=== PATIENT | male | born 1955 | race Caucasian/White ===

== ENCOUNTER 2021-09-15 11:44 | Inpatient (IN) | payer MEDICARE, OTHER ==
[~2021-09-15] VITALS: Ht 167.6 cm; Wt 75.0 kg
[2021-09-15 12:33] LABS: BASOPHILS # (AUTO) 0.1 X10'3 (0-0.2); BASOPHILS % (AUTO) 0.9 % (0-1); EOSINOPHILS # (AUTO) 0.1 X10'3 (0-0.9); EOSINOPHILS % (AUTO) 1.4 % (0-6); HEMATOCRIT 45.8 % (42.0-52.0); HEMOGLOBIN 15.9 g/dl (14.0-17.9); LYMPHOCYTES # (AUTO) 1.5 X10'3 (1.1-4.8); LYMPHOCYTES % (AUTO) 20.3 % (21-51); MEAN CORPUSCULAR HEMOGLOBIN 32.5 PG (27.0-31.0); MEAN CORPUSCULAR HGB CONC 34.7 g/dL (33.0-36.5); MEAN CORPUSCULAR VOLUME 93.6 FL (78-98); MEAN PLATELET VOLUME 8.1 FL (7.4-10.4); MONOCYTES # (AUTO) 0.6 X10'3 (0-0.9); MONOCYTES % (AUTO) 7.9 % (2-12); NEUTROPHILS # (AUTO) 5.3 X10'3 (1.8-7.7); NEUTROPHILS % (AUTO) 69.5 % (42-75); PLATELET COUNT 193 X10'3 (140-440); RED BLOOD COUNT 4.89 X10'6 (4.70-6.10); RED CELL DISTRIBUTION WIDTH 13.6 % (11.5-14.5); WHITE BLOOD COUNT 7.6 X10'3 (4.5-11.0)
[2021-09-15] MEDS ORDERED: normal saline 1000ML IV soln IVB ONE (12:40)
[2021-09-15 12:42] LABS: ALANINE AMINOTRANSFERASE 28 U/L (12-78); ALBUMIN/GLOBULIN RATIO 0.9 (1.1-1.5); ALKALINE PHOSPHATASE 92 IU/L (46-116); ANION GAP 13 (8-16); ASPARTATE AMINO TRANSFERASE 26 U/L (10-37); BILIRUBIN,TOTAL 0.4 MG/DL (0.1-1.0); BLOOD UREA NITROGEN 17 MG/DL (7-18); BUN/CREATININE RATIO 15.6 (5.4-32.0); CALCIUM 8.9 MG/DL (8.5-10.1); CHLORIDE 108 MMOL/L (99-107); CREATININE 1.09 MG/DL (0.60-1.10); GLUCOSE 112 MG/DL (70-104); POTASSIUM 4.2 MMOL/L (3.5-5.1); SODIUM 146 MMOL/L (135-145); TOTAL PROTEIN 8.3 G/DL (6.4-8.2); eGFR 67 ML/MIN
[2021-09-15] MEDS ORDERED: diltiazem 5mg/ml 5ml inj. IV ONE ×2 (12:55→13:20)
[2021-09-15 13:14] LABS: D-DIMER 0.58 MG/L FEU (0-0.50)
[2021-09-15 13:28] LABS: CLARITY,URINE CLEAR (Clear); COLOR,URINE YELLOW (Yellow); GLUCOSE, URINE NEGATIVE (Neg); KETONES,URINE NEGATIVE (Neg); LEUKOCYTE ESTERASE ,URINE NEGATIVE (Neg); NITRITES, URINE NEGATIVE (Neg); OCCULT BLOOD,URINE TRACE-INTACT (Neg); PROTEIN,URINE 30 mg/dl (Neg); UROBILINOGEN,URINE 0.2 E.U/dL (0.2-1.0)
[2021-09-15 13:29] LABS: UA COLLECTION TYPE URINAL
[2021-09-15] MEDS ORDERED: methylPREDNISolone sod succ 125mg/2ml vial IV ONE (13:30)
[2021-09-15 13:34] LABS: BACTERIA,URINE NONE SEEN /HPF (Neg); MUCUS STRANDS NONE SEEN /LPF (Neg); RBC,URINE NONE SEEN /HPF (0-2); SQUAMOUS EPITHELIAL CELL,UR FEW /LPF (FEW); WBC,URINE NONE SEEN /HPF (0-4)
[2021-09-15] MEDS ORDERED: METF-436 PO (13:38)
[2021-09-15] MEDS ORDERED: AMLO10TA48 PO (13:38)
[2021-09-15] MEDS ORDERED: LISI20TA28 PO (13:38)
[2021-09-15] MEDS ORDERED: metoclopramide 5 mg/ml inj IV PRN (16:00)
[2021-09-15] MEDS ORDERED: acetaminophen 650mg rectal suppository RC PRN (16:00)
[2021-09-15] MEDS ORDERED: magnesium Cl slow-release 64mg tablet PO PRN (16:00)
[2021-09-15] MEDS ORDERED: acetaminophen 325mg tablet PO PRN ×2 (16:00)
[2021-09-15] MEDS ORDERED: magnesium 4gm in 100ml NS 100 ML IV PRN (16:00)
[2021-09-15] MEDS ORDERED: mag hydrox/Alum hydrox/simeth 30ml oral suspension PO PRN (16:00)
[2021-09-15] MEDS ORDERED: ondansetron/PF 4mg/2ml inj IV PRN (16:00)
[2021-09-15] MEDS ORDERED: ondansetron 4mg rapidly disintigrating tab PO PRN (16:00)
[2021-09-15] MEDS ORDERED: ipratropium/albuterol 3ml nebule NEB PRN (16:00)
[2021-09-15] MEDS ORDERED: HYDROmorphone/PF 0.2 MG/ML SYRINGE IV PRN (16:00)
[2021-09-15] MEDS ORDERED: magnesium hydroxide 30ml (MOM) UD suspension PO PRN (16:00)
[2021-09-15] MEDS ORDERED: HYDROcodone/acetaminophen 5mg/325mg tablet PO PRN (16:00)
[2021-09-15] MEDS ORDERED: HYDROcodone/acetaminophen 10/325mg tab PO PRN (16:00)
[2021-09-15] MEDS ORDERED: bisacodyl 10mg suppository rectal RC PRN (16:00)
[2021-09-15] MEDS ORDERED: magnesium 2GM in 50ml NS 50 ML IV PRN (16:00)
[2021-09-15] MEDS ORDERED: potassium CL 10mEq/100ml bag 100 ML IV PRN (16:00)
[2021-09-15] MEDS ORDERED: potassium Cl 20 mEq SR tablet PO PRN (16:00)
[2021-09-15] MEDS ORDERED: PERFLUTREN PROTEIN-A MICROSPHR (Optison) 0.22 MG/ML 3ML VIAL IV ONE (16:00)
[2021-09-15] MEDS ORDERED: iohexol 350MG/ML 100ml bottle IV ONE (16:21)
[2021-09-15] MEDS ORDERED: LORazepam 1 MG tablet PO PRN (16:40)
[2021-09-15] MEDS ORDERED: cefTRIAXone 1g/NS 100ml IVPB 100 ML IV SCH ×2 (16:40→22:34)
[2021-09-15] MEDS ORDERED: VANCOMYCIN LEVEL IV ONE (17:21)
[2021-09-15] MEDS: dextrose 5%-1/2 normal saline 1,000 ML IV SCH (18:08)
[2021-09-15] MEDS: diltiazem-NS 100mg/100ml 100 ML IV SCH (18:09)
[2021-09-15] MEDS: ipratropium/albuterol 3ml nebule NEB SCH ×2 (19:03→23:09)
[2021-09-15 19:09] LABS: HEMOGLOBIN A1C 5.4 % (4.5-6.2)
[2021-09-15] MEDS: K and/or MAG REPLACEMENT MC SCH (20:00)
--- NOTE | 2021-09-15 20:51 | NUR ---
SPOKE TO DR ALCARAZ OVER THE PHONE. HE WILL CHANGE ORDER OF CARDIZEM TO BE RUNNING AT 15 PCU REQUESTS AN ORDER EVERY TIME THEY TITRATE UP FROM 5
[2021-09-15] MEDS ORDERED: temazepam 15mg capsule PO PRN (21:00)
[2021-09-15 22:02] VITALS: BP 136/95
--- NOTE | 2021-09-15 23:15 | NUR ---
pt admitted to floor from ED. A&Ox4. ambulatory to bed. pt denies any pain/palpitations at this time. Cardizem gtt infusing 15mLs/hr. HR 120s. sinus tach. BP stable, cycling. pt states dyspnea with ambulation. receiving bhumika breathing treatments. ? new diagnosis COPD has pulmonology appointment Wednesday per pt. pt does endorse moderate alcohol use, 3-4 whiskeys a night. last drink was yesterday evening per pt. pt denies any hx of withdraws from alcohol. 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 skin assessment completed. see chart. pt resting comfortably in bed. respirations even and unlabored. denies any pain at this time. call light within reach. frequent rounding. [facility] Addendum: 09/16/21 at 0147 by Valentine Vega - Traveler RN pt remains asymptomatic on 15ml/hr Cardizem. HR remains Sinus Tach/ ?aflutter, 120s-130s. MD davis paged, on floor and made aware. no new orders at this time. maintain gtt at 15mL/hr per . pt remains on monitor now 110s-120s. call light within reach. [facility]
[2021-09-16] VITALS (9 sets, daily range): BP systolic 97–125; BP diastolic 62–83
[2021-09-16] MEDS: diltiazem-NS 100mg/100ml 100 ML IV SCH ×2 (00:37→09:19)
[2021-09-16] MEDS: ipratropium/albuterol 3ml nebule NEB SCH ×6 (03:13→22:55)
[2021-09-16] MEDS: dextrose 5%-1/2 normal saline 1,000 ML IV SCH ×2 (06:18→11:14)
--- NOTE | 2021-09-16 07:00 | NUR ---
Diabetes consult: Noted pt w/ hx of DM, A1c 5.4 well controlled and appropriate per ADA guidelines. DM ed not indicated at this time. Addendum: 09/16/21 at [address] Amended: Links added.
[2021-09-16 07:13] LABS: BASOPHILS % (AUTO) 0.1 % (0-1); EOSINOPHILS % (AUTO) 0 % (0-6); HEMATOCRIT 40.9 % (42.0-52.0); HEMOGLOBIN 14.4 g/dl (14.0-17.9); LYMPHOCYTES # (AUTO) 0.2 X10'3 (1.1-4.8); LYMPHOCYTES % (AUTO) 2.2 % (21-51); MEAN CORPUSCULAR HEMOGLOBIN 33.3 PG (27.0-31.0); MEAN CORPUSCULAR HGB CONC 35.2 g/dL (33.0-36.5); MEAN CORPUSCULAR VOLUME 94.7 FL (78-98); MEAN PLATELET VOLUME 8.6 FL (7.4-10.4); MONOCYTES # (AUTO) 0.3 X10'3 (0-0.9); MONOCYTES % (AUTO) 2.3 % (2-12); NEUTROPHILS # (AUTO) 10.5 X10'3 (1.8-7.7); NEUTROPHILS % (AUTO) 95.4 % (42-75); PLATELET COUNT 164 X10'3 (140-440); RED BLOOD COUNT 4.32 X10'6 (4.70-6.10); RED CELL DISTRIBUTION WIDTH 13.7 % (11.5-14.5)
[2021-09-16 07:38] LABS: GLUCOSE 221 MG/DL (70-104)
[2021-09-16 07:39] LABS: ALANINE AMINOTRANSFERASE 24 U/L (12-78); ALBUMIN 3.2 G/DL (3.4-5.0); ALBUMIN/GLOBULIN RATIO 0.9 (1.1-1.5); ALKALINE PHOSPHATASE 79 IU/L (46-116); ANION GAP 22 (8-16); ASPARTATE AMINO TRANSFERASE 21 U/L (10-37); BILIRUBIN,TOTAL 0.3 MG/DL (0.1-1.0); BLOOD UREA NITROGEN 21 MG/DL (7-18); BUN/CREATININE RATIO 12.8 (5.4-32.0); CHLORIDE 106 MMOL/L (99-107); CREATININE 1.64 MG/DL (0.60-1.10); MAGNESIUM 1.6 MG/DL (1.5-2.4); POTASSIUM 3.2 MMOL/L (3.5-5.1); SODIUM 144 MMOL/L (135-145); TOTAL CARBON DIOXIDE 15.6 MMOL/L (24-32); TOTAL PROTEIN 6.8 G/DL (6.4-8.2); eGFR 42 ML/MIN
[2021-09-16] MEDS: K and/or MAG REPLACEMENT MC SCH ×2 (08:00→19:55)
[2021-09-16] MEDS ORDERED: lisinopril 20mg tablet PO SCH (08:00)
[2021-09-16] MEDS ORDERED: bisacodyl 10mg suppository rectal RC PRN (09:05)
[2021-09-16] MEDS: potassium Cl 20 mEq SR tablet PO PRN ×3 (10:44→19:55)
[2021-09-16] MEDS: metoprolol tartrate 12.5mg (1/2 tablet) PO SCH ×2 (11:13→19:54)
[2021-09-16] MEDS: docusate sod 100mg capsule PO SCH ×2 (11:13→19:54)
[2021-09-16] MEDS: piperacillin/tazo 3.375gm/50ml 50 ML IV SCH (16:14)
[2021-09-16] MEDS ORDERED: polyethylene glycol 3350 17gm powd pack PO SCH (21:00)
[2021-09-17] MEDS: piperacillin/tazo 3.375gm/50ml 50 ML IV SCH ×2 (00:09→08:30)
[2021-09-17 02:00] VITALS: BP 98/63
[2021-09-17] MEDS: ipratropium/albuterol 3ml nebule NEB SCH ×3 (03:05→11:32)
[2021-09-17] MEDS: dextrose 5%-1/2 normal saline 1,000 ML IV SCH (05:49)
[2021-09-17 06:00] VITALS: BP 123/63
[2021-09-17 08:30] VITALS: BP_SYST 123
[2021-09-17] MEDS: K and/or MAG REPLACEMENT MC SCH (08:30)
[2021-09-17] MEDS: metoprolol tartrate 12.5mg (1/2 tablet) PO SCH (08:30)
[2021-09-17] MEDS: docusate sod 100mg capsule PO SCH (08:30)
[2021-09-17 08:47] LABS: BASOPHILS % (AUTO) 0.1 % (0-1); EOSINOPHILS % (AUTO) 0 % (0-6); HEMATOCRIT 40.1 % (42.0-52.0); HEMOGLOBIN 13.9 g/dl (14.0-17.9); LYMPHOCYTES % (AUTO) 7.8 % (21-51); MEAN CORPUSCULAR HEMOGLOBIN 32.8 PG (27.0-31.0); MEAN CORPUSCULAR HGB CONC 34.7 g/dL (33.0-36.5); MEAN CORPUSCULAR VOLUME 94.7 FL (78-98); MEAN PLATELET VOLUME 8.3 FL (7.4-10.4); MONOCYTES # (AUTO) 0.8 X10'3 (0-0.9); MONOCYTES % (AUTO) 6.6 % (2-12); NEUTROPHILS # (AUTO) 10.6 X10'3 (1.8-7.7); NEUTROPHILS % (AUTO) 85.5 % (42-75); PLATELET COUNT 168 X10'3 (140-440); RED BLOOD COUNT 4.23 X10'6 (4.70-6.10); RED CELL DISTRIBUTION WIDTH 14.2 % (11.5-14.5); WHITE BLOOD COUNT 12.4 X10'3 (4.5-11.0)
[2021-09-17 09:11] LABS: ALANINE AMINOTRANSFERASE 25 U/L (12-78); ALBUMIN 3.4 G/DL (3.4-5.0); ALKALINE PHOSPHATASE 71 IU/L (46-116); ANION GAP 11 (8-16); ASPARTATE AMINO TRANSFERASE 21 U/L (10-37); BILIRUBIN,TOTAL 0.4 MG/DL (0.1-1.0); BLOOD UREA NITROGEN 23 MG/DL (7-18); BUN/CREATININE RATIO 18.5 (5.4-32.0); CALCIUM 8.5 MG/DL (8.5-10.1); CHLORIDE 108 MMOL/L (99-107); CREATININE 1.24 MG/DL (0.60-1.10); GLUCOSE 100 MG/DL (70-104); MAGNESIUM 1.8 MG/DL (1.5-2.4); POTASSIUM 4.2 MMOL/L (3.5-5.1); SODIUM 142 MMOL/L (135-145); TOTAL CARBON DIOXIDE 22.8 MMOL/L (24-32); TOTAL PROTEIN 6.8 G/DL (6.4-8.2); eGFR 58 ML/MIN
[2021-09-17] MEDS ORDERED: POLY17PO10 PO (10:53)
[2021-09-17] MEDS ORDERED: AMOX-117 PO (10:53)
[2021-09-17] MEDS ORDERED: DOCU-171 PO (10:53)
[2021-09-17] MEDS ORDERED: LOP12.5T PO (10:53)
--- NOTE | 2021-09-17 12:30 | NUR ---
Per orders, DC patient. Pt was educated on discharge orders and new medications. Pt iv and tele removed and pt left via wheelchair with .
== END 2021-09-17 16:27 | disposition home or self-care (01) | DRG 602 ==
LOC: ER 11:45 → ED HOLD 16:04 → PCU 3S 21:45
PROVIDERS: ADMIT Family Medicine; ATTEND Family Medicine
PROC: B32T1ZZ Computerized Tomography (CT Scan) of Left Pulmonary Artery using Low Osmolar Contrast (ICD-10-PCS; principal; 2021-09-15)
PROC: B3201ZZ Computerized Tomography (CT Scan) of Thoracic Aorta using Low Osmolar Contrast (ICD-10-PCS; 2021-09-15)
PROC: B32S1ZZ Computerized Tomography (CT Scan) of Right Pulmonary Artery using Low Osmolar Contrast (ICD-10-PCS; 2021-09-15)
PROC: BW211ZZ Computerized Tomography (CT Scan) of Abdomen and Pelvis using Low Osmolar Contrast (ICD-10-PCS; 2021-09-15)
DX: L03.316 Cellulitis of umbilicus (principal); N17.0 Acute kidney failure with tubular necrosis; K57.92 Diverticulitis of intestine, part unspecified, without perforation or abscess without bleeding; E87.0 Hyperosmolality and hypernatremia; R00.0 Tachycardia, unspecified; E11.9 Type 2 diabetes mellitus without complications; E87.6 Hypokalemia; I10 Essential (primary) hypertension; R63.4 Abnormal weight loss; J44.9 Chronic obstructive pulmonary disease, unspecified; K59.00 Constipation, unspecified; Z87.891 Personal history of nicotine dependence; Z68.26 Body mass index [BMI] 26.0-26.9, adult; Z88.5 Allergy status to narcotic agent
CPT/HCPCS: 36415; 71045; 71275; 74177; 80053; 81001; 83036; 83735; 83880; 84145; 84443; 84484; 85025; 85379; 87081; 93005; 93306; 94640; 94760; 96361; 96374; 96375; 99285; G0378; J0696; J2543; J2930; J3490; J7030; J7042; Q9967